=== PATIENT | female | born 1955 | race Caucasian/White ===

== ENCOUNTER 2016-09-06 16:19 | Emergency (ER) | payer OTHER ==
--- NOTE | 2016-09-06 17:05 | DIAGNOSTIC IMAGING REPORT ---
PROCEDURE: XR CHEST 1 VIEW INDICATION: CONFUSION TECHNIQUE: Portable AP view (1700 hours). COMPARISON: None. FINDINGS: Allowing for overlying wires and electrodes, lungs are clear. Heart and mediastinum are normal. Thorax is normal. IMPRESSION: 1. Negative chest.
--- NOTE | 2016-09-06 17:24 | DIAGNOSTIC IMAGING REPORT ---
PROCEDURE: CT HEAD WITHOUT CONTRAST INDICATION: MENTAL STATUS CHANGE TECHNIQUE: Noncontrast axial images with sagittal and coronal reformations. COMPARISON: None. FINDINGS: There is mild to moderate low density in the white matter of the cerebral hemispheres. Brain and ventricles are otherwise normal. No evidence of an acute process or hemorrhage. Sinuses and mastoids are normal. IMPRESSION: 1. 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 2. Otherwise negative head CT. No evidence of an acute process. 3. Findings discussed with Dr. Zana Gannon at [address] scans at this facility use dose modulation, iterative reconstruction, and/or weight-based dosing when appropriate to reduce radiation dose to as low as reasonably achievable.
--- NOTE | 2016-09-06 20:42 | ED NURSING NOTES ---
Clinical Report - Nurses [address] [place] [address] 09/06/2016 16:21 [id number] TRI[facility] Triage time 16:Sep 06 2016. Acuity: LEVEL 3. Chief Complaint: "FELT STRANGE" and DISORIENTED. Alert. No acute distress. SEPSIS SCREEN: Sepsis Screen. Negative (no infection suspected/documented). MIKO COMA SCORE: [place] Coma Scale: 15- eyes open spontaneously (4); best verbal response- oriented x 4 (5); best motor response- obeys commands (6). --16:52 Betty Roche R.N. 16:35 09/06/16. BP: 121/90. HR: 101. RR: 16. O2 saturation: 95%. Temp: 97.8 F. Pain level now: 0/10. --16:52 Betty Roche R.N. Weight: 104.3 kg stated. Height/Length: 68.5 inches Per Patient. BMI: 34.5. --16:50 Betty Roche R.N. Medications Aspirin Oral (Tablet Chewable 81 mg) 1 tablet, daily. --16:39 Betty Roche R.N. AmLODIPine Besylate Oral (Tablet 10 mg) 1 tablet, daily. --16:40 Betty Roche R.N. One Daily 50 Plus Oral. --16:40 Betty Roche R.N. Atorvastatin Calcium Oral (Tablet 40 mg) 1 tablet, daily. --16:41 Betty Roche R.N. DULoxetine HCl Oral (Capsule Delayed Release Particles 60 mg) 1 capsule, daily. --16:41 Brittany Cramer R.N. MetFORMIN HCl Oral (Tablet 500 mg) 2 tablets, 2x a day. --16:41 Brittany Cramer R.N. BusPIRone HCl Oral (Tablet 30 mg) 1 tablet, 2x a day. --17:48 Brittany Cramer R.N. Omeprazole Oral (Capsule Delayed Release 20 mg) 1 capsule, 2x a day. --17:50 Brittany Cramer R.N. Yuvafem 10 mcg, 2x a week. --17:52 Brittany Cramer R.N. Vaniqa External (Cream 13.9 %), as needed. --17:53 Brittany Cramer R.N. Clindamycin 1% gel, 2x a day. --17:54 Brittany Cramer R.N. The following entry was struck by Brittany Cramer R.N., 17:51 (09/06/16) Reason - other. <<[facility] ENTRY-- Valsartan-Hydrochlorothiazide Oral (Tablet 160-25 mg) 1 tablet, daily. --16:42 Betty Roche R.N. --END STRIKE>> The following entry was struck by Brittany Cramer R.N., 17:51 (09/06/16) Reason - other. <<[facility] ENTRY-- PriLOSEC OTC Oral (Tablet Delayed Release 20 mg) 1 tablet, BID. --16:40 Betty Roche R.N. --END STRIKE>> The following entry was struck and corrected by Brittany Cramer R.N., 17:49 (09/06/16) Reason for correction - other(correction). <<[facility] ENTRY-- DULoxetine HCl Oral (Capsule Delayed Release Particles 60 mg) 2 capsules, daily. --16:41 Betty Roche R.N. --END STRIKE>> The following entry was struck and corrected by Brittany Cramer R.N., 17:47 (09/06/16) Reason for correction - wrong value(correction). <<[facility] ENTRY-- MetFORMIN HCl Oral (Tablet 500 mg), 4x a day. --16:41 Betty Roche R.N. --END STRIKE>> The following entry was struck by Brittany Cramer R.N., 17:46 (09/06/16) Reason - other. <<[facility] ENTRY-- Metformin. --16:41 Betty Roche R.N. --END STRIKE>>. Allergies No Known Drug Allergy. --16:43 Betty Roche R.N. History Arrived by private vehicle. Historian: patient. Accompanied by family. Patient was last known well (1245 PM). ( pt states that she was at the dentist with her daughter and then after she left she got gas and went to [employer]. Pt states that she cant really remember getting gas or going to [employer]. Same thing happened after [employer] when she went to [facility].). ( recently pt has not been feeling well and states that she has had some n/v the last couple of days.). 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 PAST MEDICAL HX: Diabetes mellitus. Hypertension. Immunizations: up-to-date. SOCIAL HX: Never smoker. Occasional alcohol use. No drug use. No infectious disease exposure. SELF HARM ASSESSMENT: A self harm assessment was performed. The patient answered "no" to the question "Do you have thoughts of harming or killing yourself?" and "Have you recently had thoughts about harming or killing others?". FALL RISK ASSESSMENT: Fall risk assessment completed. No fall risk identified. NUTRITIONAL RISK ASSESSMENT: The nutritional risk assessment revealed no deficiencies. FUNCTIONAL ASSESSMENT: Functional assessment: no impairments noted. LEARNING NEEDS ASSESSMENT: The learning needs assessment revealed no barriers. ABUSE ASSESSMENT: Abuse assessment: The patient was asked "Do you feel safe in your home?". SKIN INTEGRITY ASSESSMENT: Skin integrity risk assessment completed. No skin integrity risk identified. --16:52 Betty Roche R.N. PROBLEMS: Diabetes Mellitus. Hypercholesterolemia. Anxiety Reaction. Depression. Hypertension. Tetanus Status. Immunizations. LNMP - Last Normal Menstrual Period. --16:45 Betty Roche R.N. ADDITIONAL SURGERIES: Back Surgery. BREAST REDUCTION. C SECTION. Cholecystectomy. Knee Surgery. Neck Surgery. Tubal Ligation. --16:45 Betty Roche R.N. Interventions ID band on patient. To room. --16:52 Betty Roche R.N. PHYSICAL ASSESSMENT Ambulatory to room. GENERAL / NEURO / PSYCH: Awake. Oriented X 4. Alert. Appears in no acute distress. Appears anxious. Speech normal. Mood/affect normal. Moves all extremities equally. HEENT: No facial asymmetry noted. RESPIRATORY: Respirations not labored. CVS: Capillary refill less than 2 seconds. SKIN: Skin is intact, warm and dry. --16:53 Betty Roche R.N. NURSING PROGRESS NOTES Monitoring of patient in place. Patient gowned. Head of bed elevated. Reassurance given to the patient. Patient identifiers checked. Call light placed in reach. Side rails up x 2. Bed placed in lowest position. Brakes of bed on. --16:54 Betty Roche R.N. 16:45 09/06/2016 Site #1 started via IV in the left antecubital space with an 20g angiocath, with aseptic technique and good blood return; one attempt. Saline lock flushed with 10 mL saline. --16:55 Betty Roche R.N. 17:32 09/06/16. --17:32 Jose Fletcher R.N. 17:30 09/06/16. BP: 125/83. HR: 89. RR: 20. O2 saturation: 97% on room air. --17:32 Jose Fletcher R.N. EKG time: (1633). EKG was ordered, performed by a tech and shown to the ED physician. --18:30 Santo Ramirez, DUNCAN Tech1 Overall patient status is the same- she states feels the same. GENERAL / NEURO / PSYCH: Alert. Oriented X 4. RESPIRATORY: No respiratory distress. SKIN: Skin is warm and dry. --18:52 Betty Roche R.N. 18:52 09/06/16. BP: 138/79. HR: 93. RR: 18. O2 saturation: 97%. Pain level now: 0/10. --18:52 Betty Roche R.N. ( provided pt with soup crackers and cheese.). --19:02 Betty Roche R.N. <<STRICKEN ENTRY-- ( put was provided phone and was unable to contact his mother. pt called this nurse a bitch under his breath when he was handed the phone. after pt was finished attempting to call home phone was removed from his room.). --19:12 Betty Roche R.N. --END STRIKE>> Charted On Wrong Patient --19:13 Betty Roche R.N. <<STRICKEN ENTRY-- 19:10 09/06/16. BP: 138/81. HR: 81. RR: 16. O2 saturation: 90%. Pain level now: 0/10. --19:12 Betty Roche R.N. --END STRIKE>> Charted on wrong patient. --19:13 Betty Roche R.N. DISPOSITION / DISCHARGE 20:56 09/06/16. No learning barriers present. Discharge instructions provided and reviewed with the patient. Reviewed warnings. Treatments reviewed. Reviewed referrals. Activity restrictions reviewed. Patient verbalized understanding. Written instructions provided in Nigerien. The patient was discharged home and accompanied by spouse. She left the Emergency Department ambulatory and via private vehicle. Spouse driving. --20:56 Prerna Jones R.N. 20:52 09/06/16. BP: 138/67. HR: 100. RR: 25. O2 saturation: 100% on room air. Temp: deferred. Pain level now: 0/10. --20:56 Prerna Jones R.N. Locked/Released at 09/06/2016 22:57 by Betty Roche R.N.
--- NOTE | 2016-09-06 20:42 | ED ORDER SUMMARY ---
..... Patient: MCKENNA MONAHAN OrderSheet [facility] VisitID: [id number] [place] [address] 61y, F Registration Date/Time: 09/06/2016 ORDER SHEET Weight: 104.3 kg (stated) Allergies: No Known Drug Allergy GENERAL ORDERS: Chest 1V Urgent (16:46 09/06/2016 Rosy MCDONALD) (Ack 16:52 LNations ER Tech1) (17:26 JBoardley R.N.) Fortune Cookie Maker (Continuous) (16:47 09/06/2016 Rosy MCDONALD) (Ack 16:51 LNations ER Tech1) (16:55 KKnebel R.N.) CT Head wo Cont Urgent (16:47 09/06/2016 Rosy MCDONALD) (Ack 16:52 LNations ER Tech1) (16:56 KKnebel R.N.) CBC w Diff Urgent (16:47 09/06/2016 Rosy MCDONALD) (Ack 16:51 LNations ER Tech1) (16:55 KKnebel R.N.) CMP Urgent (16:47 09/06/2016 Rosy MCDONALD) (Ack 16:51 LNations ER Tech1) (16:55 KKnebel R.N.) UA-Culture if indicated Urgent (16:47 09/06/2016 Rosy MCDONALD) (Ack 16:51 LNations ER Tech1) (17:26 Homar R.N.) Amylase Urgent (16:47 09/06/2016 Rosy MCDONALD) (Ack 16:51 LNations ER Tech1) (16:55 KKnebel R.N.) Lipase Urgent (16:47 09/06/2016 Rosy MCDONALD) (Ack 16:51 LNations ER Tech1) (16:55 KKnebel R.N.) CPK Urgent (16:47 09/06/2016 Rosy MCDONALD) (Ack 16:51 LNations ER Tech1) (16:55 KKnebel R.N.) Troponin-I Urgent (16:47 09/06/2016 Rosy MCDONALD) (Ack 16:51 LNations ER Tech1) (16:55 KKnebel R.N.) Oxygen (2 L/min) (NC) (16:47 09/06/2016 Rsoy MCDONALD) (Ack 16:51 LNations ER Tech1) (16:55 Nigel R.N.) Pulse oximeter (16:47 09/06/2016 Rosy MCDONALD) (Ack 16:51 LNations ER Tech1) (16:55 Nigel R.N.) EKG - ER Stat (16:47 09/06/2016 Rosy MCDONALD) (16:50 PWeiler ER Tech1) (Ack 16:51 LNations ER Tech1) Urine Drug Screen Urgent (17:11 09/06/2016 Rosy MCDONALD) (Ack 17:18 LNations ER Tech1) (17:26 Homar Gibson.NGaurang) MEDICATION ORDERS: IV FLUIDS: IV Saline Lock (16:47 09/06/2016 Rosy MCDONALD) (16:55 Nigel R.N.) ORDER SHEET NOTES: [Electronically signed by Betty Roche R.N. (22:57 09/06/2016)] [Electronically signed by Zana Gannon MD (21:30 09/12/2016)] [Electronically locked/signed by Betty Roche R.N. (22:57 09/06/2016)]
--- NOTE | 2016-09-06 20:42 | ED NURSING NOTES ---
Clinical Report - Nurses [address] [place] [address] 09/06/2016 16:21 Patient: [facility]CKENNA [facility]AHAN [id number] TRIAGE Triage time 16:Sep 06 2016. Acuity: LEVEL 3. Chief Complaint: "FELT STRANGE" and DISORIENTED. Alert. No acute distress. SEPSIS SCREEN: Sepsis Screen. Negative (no infection suspected/documented). MIKO COMA SCORE: [place] Coma Scale: 15- eyes open spontaneously (4); best verbal response- oriented x 4 (5); best motor response- obeys commands (6). --16:52 Betty Roche R.N. 16:35 09/06/16. BP: 121/90. HR: 101. RR: 16. O2 saturation: 95%. Temp: 97.8 F. Pain level now: 0/10. --16:52 Betty Roche R.N. Weight: 104.3 kg stated. Height/Length: 68.5 inches Per Patient. BMI: 34.5. --16:50 Betty Roche R.N. Medications Aspirin Oral (Tablet Chewable 81 mg) 1 tablet, daily. --16:39 Betty Roche R.N. AmLODIPine Besylate Oral (Tablet 10 mg) 1 tablet, daily. --16:40 Betty Roche R.N. One Daily 50 Plus Oral. --16:40 Betty Roche R.N. Atorvastatin Calcium Oral (Tablet 40 mg) 1 tablet, daily. --16:41 Betty Roche R.N. DULoxetine HCl Oral (Capsule Delayed Release Particles 60 mg) 1 capsule, daily. --16:41 Brittany Cramer R.N. MetFORMIN HCl Oral (Tablet 500 mg) 2 tablets, 2x a day. --16:41 Brittany Cramer R.N. BusPIRone HCl Oral (Tablet 30 mg) 1 tablet, 2x a day. --17:48 Brittany Cramer R.N. Omeprazole Oral (Capsule Delayed Release 20 mg) 1 capsule, 2x a day. --17:50 Brittany Cramer R.N. Yuvafem 10 mcg, 2x a week. --17:52 Brittany Cramer R.N. Vaniqa External (Cream 13.9 %), as needed. --17:53 Brittany Cramer R.N. Clindamycin 1% gel, 2x a day. --17:54 Brittany Cramer R.N. The following entry was struck by Brittany Cramer R.N., 17:51 (09/06/16) Reason - other. <<[facility] ENTRY-- Valsartan-Hydrochlorothiazide Oral (Tablet 160-25 mg) 1 tablet, daily. --16:42 Betty Roche R.N. --END STRIKE>> The following entry was struck by Brittany Cramer R.N., 17:51 (09/06/16) Reason - other. <<[facility] ENTRY-- PriLOSEC OTC Oral (Tablet Delayed Release 20 mg) 1 tablet, BID. --16:40 Betty Roche R.N. --END STRIKE>> The following entry was struck and corrected by Brittany Cramer R.N., 17:49 (09/06/16) Reason for correction - other(correction). <<[facility] ENTRY-- DULoxetine HCl Oral (Capsule Delayed Release Particles 60 mg) 2 capsules, daily. --16:41 Betty Roche R.N. --END STRIKE>> The following entry was struck and corrected by Brittany Cramer R.N., 17:47 (09/06/16) Reason for correction - wrong value(correction). <<[facility] ENTRY-- MetFORMIN HCl Oral (Tablet 500 mg), 4x a day. --16:41 Betty Roche R.N. --END STRIKE>> The following entry was struck by Brittany Cramer R.N., 17:46 (09/06/16) Reason - other. <<[facility] ENTRY-- Metformin. --16:41 Betty Roche R.N. --END STRIKE>>. Allergies No Known Drug Allergy. --16:43 Betty Roche R.N. History Arrived by private vehicle. Historian: patient. Accompanied by family. Patient was last known well (1245 PM). ( pt states that she was at the dentist with her daughter and then after she left she got gas and went to [employer]. Pt states that she cant really remember getting gas or going to [employer]. Same thing happened after [employer] when she went to [facility].). ( recently pt has not been feeling well and states that she has had some n/v the last couple of days.). 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 PAST MEDICAL HX: Diabetes mellitus. Hypertension. Immunizations: up-to-date. SOCIAL HX: Never smoker. Occasional alcohol use. No drug use. No infectious disease exposure. SELF HARM ASSESSMENT: A self harm assessment was performed. The patient answered "no" to the question "Do you have thoughts of harming or killing yourself?" and "Have you recently had thoughts about harming or killing others?". FALL RISK ASSESSMENT: Fall risk assessment completed. No fall risk identified. NUTRITIONAL RISK ASSESSMENT: The nutritional risk assessment revealed no deficiencies. FUNCTIONAL ASSESSMENT: Functional assessment: no impairments noted. LEARNING NEEDS ASSESSMENT: The learning needs assessment revealed no barriers. ABUSE ASSESSMENT: Abuse assessment: The patient was asked "Do you feel safe in your home?". SKIN INTEGRITY ASSESSMENT: Skin integrity risk assessment completed. No skin integrity risk identified. --16:52 Betty Roche R.N. PROBLEMS: Diabetes Mellitus. Hypercholesterolemia. Anxiety Reaction. Depression. Hypertension. Tetanus Status. Immunizations. LNMP - Last Normal Menstrual Period. --16:45 Betty Roche R.N. ADDITIONAL SURGERIES: Back Surgery. BREAST REDUCTION. C SECTION. Cholecystectomy. Knee Surgery. Neck Surgery. Tubal Ligation. --16:45 Betty Roche R.N. Interventions ID band on patient. To room. --16:52 Betty Roche R.N. PHYSICAL ASSESSMENT Ambulatory to room. GENERAL / NEURO / PSYCH: Awake. Oriented X 4. Alert. Appears in no acute distress. Appears anxious. Speech normal. Mood/affect normal. Moves all extremities equally. HEENT: No facial asymmetry noted. RESPIRATORY: Respirations not labored. CVS: Capillary refill less than 2 seconds. SKIN: Skin is intact, warm and dry. --16:53 Betty Roche R.N. NURSING PROGRESS NOTES Monitoring of patient in place. Patient gowned. Head of bed elevated. Reassurance given to the patient. Patient identifiers checked. Call light placed in reach. Side rails up x 2. Bed placed in lowest position. Brakes of bed on. --16:54 Betty Roche R.N. 16:45 09/06/2016 Site #1 started via IV in the left antecubital space with an 20g angiocath, with aseptic technique and good blood return; one attempt. Saline lock flushed with 10 mL saline. --16:55 Betty Roche R.N. 17:32 09/06/16. --17:32 Jose Fletcher R.N. 17:30 09/06/16. BP: 125/83. HR: 89. RR: 20. O2 saturation: 97% on room air. --17:32 Jose Fletcher R.N. EKG time: (1633). EKG was ordered, performed by a tech and shown to the ED physician. --18:30 Santo Ramirez, DUNCAN Tech1 Overall patient status is the same- she states feels the same. GENERAL / NEURO / PSYCH: Alert. Oriented X 4. RESPIRATORY: No respiratory distress. SKIN: Skin is warm and dry. --18:52 Betty Roche R.N. 18:52 09/06/16. BP: 138/79. HR: 93. RR: 18. O2 saturation: 97%. Pain level now: 0/10. --18:52 Betty Roche R.N. ( provided pt with soup crackers and cheese.). --19:02 Betty Roche R.N. <<STRICKEN ENTRY-- ( put was provided phone and was unable to contact his mother. pt called this nurse a bitch under his breath when he was handed the phone. after pt was finished attempting to call home phone was removed from his room.). --19:12 Betty Roche R.N. --END STRIKE>> Charted On Wrong Patient --19:13 Betty oRche R.N. <<STRICKEN ENTRY-- 19:10 09/06/16. BP: 138/81. HR: 81. RR: 16. O2 saturation: 90%. Pain level now: 0/10. --19:12 Betty Roche R.N. --END STRIKE>> Charted on wrong patient. --19:13 Betty Roche R.N. DISPOSITION / DISCHARGE 20:56 09/06/16. No learning barriers present. Discharge instructions provided and reviewed with the patient. Reviewed warnings. Treatments reviewed. Reviewed referrals. Activity restrictions reviewed. Patient verbalized understanding. Written instructions provided in Pakistani. The patient was discharged home and accompanied by spouse. She left the Emergency Department ambulatory and via private vehicle. Spouse driving. --20:56 Prerna Jones R.N. 20:52 09/06/16. BP: 138/67. HR: 100. RR: 25. O2 saturation: 100% on room air. Temp: deferred. Pain level now: 0/10. --20:56 Prerna Jones R.N. Locked/Released at 09/06/2016 22:57 by Betty Roche R.N.
--- NOTE | 2016-09-06 20:42 | ED ORDER SUMMARY ---
..... Patient: MCKENNA MONAHAN OrderSheet [facility] VisitID: [id number] [place] [address] 61y, F Registration Date/Time: 09/06/2016 ORDER SHEET Weight: 104.3 kg (stated) Allergies: No Known Drug Allergy GENERAL ORDERS: Chest 1V Urgent (16:46 09/06/2016 Rosy MCDONALD) (Ack 16:52 LNations ER Tech1) (17:26 JBoardley R.N.) Quilt Stuffer (Continuous) (16:47 09/06/2016 Rosy MCDONALD) (Ack 16:51 LNations ER Tech1) (16:55 KKnebel R.N.) CT Head wo Cont Urgent (16:47 09/06/2016 Rosy MCDONALD) (Ack 16:52 LNations ER Tech1) (16:56 KKnebel R.N.) CBC w Diff Urgent (16:47 09/06/2016 Rosy MCDONALD) (Ack 16:51 LNations ER Tech1) (16:55 KKnebel R.N.) CMP Urgent (16:47 09/06/2016 Rosy MCDONALD) (Ack 16:51 LNations ER Tech1) (16:55 KKnebel R.N.) UA-Culture if indicated Urgent (16:47 09/06/2016 Rosy MCDONALD) (Ack 16:51 LNations ER Tech1) (17:26 Homar R.N.) Amylase Urgent (16:47 09/06/2016 Rosy MCDONALD) (Ack 16:51 LNations ER Tech1) (16:55 KKnebel R.N.) Lipase Urgent (16:47 09/06/2016 Rosy MCDONALD) (Ack 16:51 LNations ER Tech1) (16:55 KKnebel R.N.) CPK Urgent (16:47 09/06/2016 Rosy MCDONALD) (Ack 16:51 LNations ER Tech1) (16:55 KKnebel R.N.) Troponin-I Urgent (16:47 09/06/2016 Rosy MCDONALD) (Ack 16:51 LNations ER Tech1) (16:55 KKnebel R.N.) Oxygen (2 L/min) (NC) (16:47 09/06/2016 Rosy MCDONALD) (Ack 16:51 LNations ER Tech1) (16:55 Nigel R.N.) Pulse oximeter (16:47 09/06/2016 Rosy MCDONALD) (Ack 16:51 LNations ER Tech1) (16:55 Nigel R.N.) EKG - ER Stat (16:47 09/06/2016 Rosy MCDONALD) (16:50 PWeiler ER Tech1) (Ack 16:51 LNations ER Tech1) Urine Drug Screen Urgent (17:11 09/06/2016 Rosy MCDONALD) (Ack 17:18 LNations ER Tech1) (17:26 Homar Gibson.NGaurang) MEDICATION ORDERS: IV FLUIDS: IV Saline Lock (16:47 09/06/2016 Rosy MCDONALD) (16:55 Nigel R.N.) ORDER SHEET NOTES: [Electronically signed by Betty Roche R.N. (22:57 09/06/2016)] [Electronically signed by Zana Gannon MD (21:30 09/12/2016)] [Electronically locked/signed by Betty Roche R.N. (22:57 09/06/2016)]
--- NOTE | 2016-09-06 20:42 | ED CLINICAL REPORT ---
Clinical Report - Physicians/Mid Levels [facility] [address] [place] [address] 09/06/2016 16:21 Patient: MCKENNA MONAHAN Time Seen: 16:46. Arrived- By private vehicle. Historian- patient. HISTORY OF PRESENT ILLNESS Chief Complaint: CHANGED MENTAL STATUS. This started today and is now gone. It was abrupt in onset. Patient was witnessed to be last known well (at noon). The patient has been confused and "felt strange". No weakness or numbness. Usually is alert and oriented X3 and usually has normal mobility. Similar symptoms previously: REVIEW OF SYSTEMS No chills, fever, calf pain, chest pain or cough. No difficulty breathing, pedal edema, palpitations, black stools or bloody stools. No constipation. She has experienced sweats and had nausea. She has had loose stools. No bloody diarrhea. She has had vomiting (today). The vomiting has occurred only once. All systems otherwise negative, except as recorded above. PAST HISTORY Problems: Diabetes Mellitus. Hypercholesterolemia. Anxiety Reaction. Depression. Hypertension. Additional Surgeries: Back Surgery. BREAST REDUCTION. C SECTION. Cholecystectomy. Knee Surgery. Neck Surgery. Tubal Ligation. Medications: Clindamycin 1% gel, 2x a day. Vaniqa External (Cream 13.9 %), as needed. Yuvafem 10 mcg, 2x a week. Omeprazole Oral (Capsule Delayed Release 20 mg) 1 capsule, 2x a day. BusPIRone HCl Oral (Tablet 30 mg) 1 tablet, 2x a day. MetFORMIN HCl Oral (Tablet 500 mg) 2 tablets, 2x a day. DULoxetine HCl Oral (Capsule Delayed Release Particles 60 mg) 1 capsule, daily. Atorvastatin Calcium Oral (Tablet 40 mg) 1 tablet, daily. One Daily 50 Plus Oral. AmLODIPine Besylate Oral (Tablet 10 mg) 1 tablet, daily. Aspirin Oral (Tablet Chewable 81 mg) 1 tablet, daily. Allergies: No Known Drug Allergy. SOCIAL HISTORY Never smoker. No alcohol use or drug use. She lives with spouse. FAMILY HISTORY Heart disease in first-degree relative (sibling). sister with hydrocephalus and dementia. ADDITIONAL NOTES The nursing notes have been reviewed. PHYSICAL EXAM Vital Signs: 09/06/2016 16:35 BP: 121/90. HR: 101. RR: 16. O2 saturation: 95%. Temp: 97.8 F. Pain level now: 0/10. Have been reviewed. Appearance: Alert. Head: Head atraumatic. Eyes: Pupils equal, round and reactive to light. ENT: Normal ENT inspection. Airway intact. Moist mucous membranes. Pharynx normal. Neck: Normal inspection. Neck supple. No meningeal signs or carotid bruit. CVS: Normal heart rate and rhythm. Heart sounds normal. Respiratory: No respiratory distress. Breath sounds normal. Abdomen: Soft and nontender. No organomegaly. Back: Normal inspection. Skin: Skin warm and dry. Normal skin color. No rash. Normal skin turgor. Extremities: Extremities exhibit normal ROM. No lower extremity edema. Neuro: Alert. Oriented X 3. Cranial nerves normal (as tested). No cerebellar findings. No motor deficit. No sensory deficit. LABS, X-RAYS, AND EKG EKG: Rate: 83. Non-specific ST segment / T wave abnormalities. Prior EKG unavailable. The study has been independently viewed by me. Chest X-ray: No acute disease. The X-rays were independently viewed by me. CT Head: (IMPRESSION: 1. 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 2. Otherwise negative head CT. No evidence of an acute process.). Laboratory Tests: UA-Culture if indicated: (MARIO: 09/06/2016 17:05) ( MsgRcvd 09/06/2016 17:38) Final results Test Result Flag Units (Reference) URINE COLOR YELLOW URINE APPEARANCE CLEAR URINE GLUCOSE NEGATIVE (NEGATIVE) URINE BILIRUBIN NEGATIVE (NEGATIVE) URINE KETONE NEGATIVE (NEGATIVE) URINE SPECIFIC GRAVITY 1.015 (1.010-1.030) URINE PH 6.5 (5.0-8.0) URINE PROTEIN NEGATIVE (NEGATIVE) URINE UROBILINOGEN 0.2 EU/dL (0.2-1.0) URINE NITRITE NEGATIVE (NEGATIVE) URINE BLOOD TRACE-INTACT (NEGATIVE) URINE LEUK ESTERASE NEGATIVE (NEGATIVE) URINE RBC RARE rbc/hpf (0-1) URINE WBC 1-3 wbc/hpf (0-1) URINE EPITHELIAL CELLS 0-1 EPI/hpf (0-5) URINE BACTERIA FEW (1+) (NONE SEEN) URINE COMMENT CULT NOT INDICATED URINE CULTURES ARE SET-UP BASED ON THE FOLLOWING CRITERIA:POSITIVE NITRITEPOSITIVE LEUKOCYTE ESTERASEGREATER THAN 10 WHITE BLOOD CELLSMODERATE (2+) OR GREATER BACTERIA Urine Drug Screen: (MARIO: 09/06/2016 17:05) ( MsgRcvd 09/06/2016 17:35) Final results Test Result Flag Units (Reference) AMPHETAMINE/METHAMPHETAMINE NEGATIVE (NEGATIVE) BARBITURATE NEGATIVE (NEGATIVE) BENZODIAZEPINE NEGATIVE (NEGATIVE) CANNABINOID NEGATIVE (NEGATIVE) COCAINE NEGATIVE (NEGATIVE) ECSTASY NEGATIVE (NEGATIVE) METHADONE NEGATIVE (NEGATIVE) OPIATE NEGATIVE (NEGATIVE) The urine drug screen is a qualitative screening test fordrug overdose and abuse. All screen results should beconsidered as presumptive.Drugs screened for are as follows:BenzodiazepinesCocaineAmphetamines/MetamphetaminesTHC (Tetrahydrocannabinol)OpiatesBarbituratesEcstasyMethadonePositive results are unconfirmed. For confirmation, notifythe lab for the specimen to be sent to the reference lab.All confirmations must be performed by a differentmethodology.The ingestion of natural herbal and plant productscontaining Ephedra/Ephedra metabolites can produce in urineone or more substances capable of cross reacting withamphetamine/methamphetamine immunoassays. These testsprovide a preliminary result only. A more specificalternative chemical method must be used to obtain aconfirmed analytical result. . PROGRESS AND PROCEDURES Patient/family counseled. Old medical records ordered. Disposition: Discharged. Condition: stable. CLINICAL IMPRESSION Changed mental status with confusion. INSTRUCTIONS No driving or operating machinery until released. (Talk with your doctor about whether you would benefit from MRI imaging as discussed). Warnings: Further evaluation is necessary. GENERAL WARNINGS: Return or contact your physician immediately if your condition worsens or changes unexpectedly, if not improving as expected, or if other problems arise. Your Current Medications: CONTINUE TAKING THE FOLLOWING MEDICATIONS: AmLODIPine Besylate Oral : Tablet 10 mg, 1 tablet daily. Aspirin Oral : Tablet Chewable 81 mg, 1 tablet daily. Atorvastatin Calcium Oral : Tablet 40 mg, 1 tablet daily. BusPIRone HCl Oral : Tablet 30 mg, 1 tablet 2x a day. Clindamycin 1% gel* : 2x a day. DULoxetine HCl Oral : Capsule Delayed Release Particles 60 mg, 1 capsule daily. MetFORMIN HCl Oral : Tablet 500 mg, 2 tablets 2x a day. Omeprazole Oral : Capsule Delayed Release 20 mg, 1 capsule 2x a day. One Daily 50 Plus Oral. Vaniqa External : Cream 13.9 %, prn. Yuvafem* : 10 mcg 2x a week. Follow-up: Follow up with your doctor in seven days. Call for the next available appointment. Understanding of the discharge instructions verbalized by patient and family. (Electronically signed by Zana Gannon MD 09/12/2016 21:30)
--- NOTE | 2016-09-12 21:30 | ED MED RECONCILIATION SUMMARY ---
Patient: MCKENNA MONAHAN Medication Reconciliation Report [facility] VisitID: [id number] [place] [address] 61y, F Registration Date/Time: 09/06/2016 Weight: 104.3 kg Height/Length: 60 in. BMI: 34.5 ALLERGIES: No Known Drug Allergy The patient's Home Medications are listed below: CONTINUE TAKING THE FOLLOWING MEDICATIONS: AmLODIPine Besylate Oral (10 mg) 1 tablet, daily Aspirin Oral (81 mg) 1 tablet, daily Atorvastatin Calcium Oral (40 mg) 1 tablet, daily BusPIRone HCl Oral (30 mg) 1 tablet, 2x a day Clindamycin 1% gel, 2x a day DULoxetine HCl Oral (60 mg) 1 capsule, daily MetFORMIN HCl Oral (500 mg) 2 tablets, 2x a day Omeprazole Oral (20 mg) 1 capsule, 2x a day One Daily 50 Plus Oral Vaniqa External (13.9 %) Yuvafem 10 mcg, 2x a week The source(s) of the original Home Medication information: Not obtained. The following Medications were given to the patient in the Emergency Department: None. The following Medications were prescribed to the patient: None.
--- NOTE | 2016-09-12 21:30 | ED MAR SUMMARY ---
..... Medication Administration Record [facility] [address] [place] [place], [place] [id number] Patient: MCKENNA MONAHAN Visit ID: [id number] 61y, F Weight: 104.3 kg Height/Length: 68.5 in BMI: 34.5 ALLERGIES: No Known Drug Allergy
--- NOTE | 2016-09-12 21:30 | ED DISCHARGE INSTRUCTIONS ---
Patient: MCKENNA MONAHAN General Instructions [facility] VisitID: [id number] [place] [address] 61y, F Registration Date/Time: 09/06/2016 Changed mental status with confusion. INSTRUCTIONS No driving or operating machinery until released. (Talk with your doctor about whether you would benefit from MRI imaging as discussed). Warnings: Further evaluation is necessary. GENERAL WARNINGS: Return or contact your physician immediately if your condition worsens or changes unexpectedly, if not improving as expected, or if other problems arise. Your Current Medications: CONTINUE TAKING THE FOLLOWING MEDICATIONS: AmLODIPine Besylate Oral : Tablet 10 mg, 1 tablet daily. Aspirin Oral : Tablet Chewable 81 mg, 1 tablet daily. Atorvastatin Calcium Oral : Tablet 40 mg, 1 tablet daily. BusPIRone HCl Oral : Tablet 30 mg, 1 tablet 2x a day. Clindamycin 1% gel* : 2x a day. DULoxetine HCl Oral : Capsule Delayed Release Particles 60 mg, 1 capsule daily. MetFORMIN HCl Oral : Tablet 500 mg, 2 tablets 2x a day. Omeprazole Oral : Capsule Delayed Release 20 mg, 1 capsule 2x a day. One Daily 50 Plus Oral. Vaniqa External : Cream 13.9 %, prn. Yuvafem* : 10 mcg 2x a week. Follow-up: Follow up with your doctor in seven days. Call for the next available appointment. Understanding of the discharge instructions verbalized by patient and family. ADDITIONAL INFORMATION Confusion Confusion is a change in a persons ability to think clearly. There may be trouble recognizing familiar people and places, or knowing what day it is. Memory, judgement and decision-making may also be affected. In severe cases there may be limited or no response to verbal commands. Confusion may occur suddenly or develop gradually over time. There are many injuries and medical conditions that can cause this problem. These include brain injury, side effect of medication, intoxication, withdrawal from drugs, infection, stroke, dementia,mental illness and other causes. The exam and testing today did not show the cause of this problem. Further testing will be needed. Specific treatment and hope for recovery depend on the cause of this symptom. Home Care: Be sure someone is with the confused person at all times. He/she should not be left alone or unsupervised. Keep medicines (prescription and [id number]) in a secure place, under the caregivers control. A person with confusion should not be allowed to take their own medicines.This needs to be supervised by the caregiver. Ways to help a person with confusion: Activities:Establish a daily routine. Change can be a source of stress for someone with confusion. Make a time schedule for common tasks such as: bathing, dressing, taking medicines, meals, going for walks, shopping, naps and bed time. Communication:Speak slowly and clearly with a gentle tone of voice. Use short simple words and sentences. Ask one question at a time. Do not interrupt, criticize or argue. Be calm and supportive. Use friendly facial expressions. Use pointing and touching to help communicate. If there has been loss of long-term memory, do not ask questions about past events. This would only cause frustration for the person. Behavioral tips:Use lists, signs, family photos, clocks and calendars as memory aids. Label cabinets and drawers. Try to distract, not confront, the patient. When he/she becomes frustrated or upset, redirect his/her attention to eating or some other activity of interest. Medical-Legal tips: If this proves to be a permanent condition, talk to your doctor and/or white sugar pan tank operator about getting a Power of Coffee Grinder for health care and for financial decisions. It is best to do this while the person can still sign legal documents and make his/izzy own legal decisions. Otherwise, a court order will be required. Follow-Up with the patients doctor or as advised by our staff for further testing. Get Prompt Medical Attention if any of the following occur: Frequent falling Refusal to eat or drink Violent behavior or behavior becomes too difficult to manage at home Increased drowsiness, or failure to respond normally Increasing headache, nausea or repeated vomiting Numbness or weakness of the face, one arm or one leg Slurred speech, trouble speaking, walking or seeing Fainting spell, dizziness or seizure Unexplained fever over 100.4 F (38.0 C) oral You have been given the following additional information: Confusion No driving or operating machinery until released. (Electronically signed by Zana Gannon MD 09/12/2016 21:30)
--- NOTE | 2016-09-12 21:30 | ED MAR SUMMARY ---
..... Medication Administration Record [facility] [address] [place] [place], [place] [id number] Patient: MCKENNA MONAHAN Visit ID: [id number] 61y, F Weight: 104.3 kg Height/Length: 68.5 in BMI: 34.5 ALLERGIES: No Known Drug Allergy
--- NOTE | 2016-09-12 21:30 | ED MED RECONCILIATION SUMMARY ---
Patient: MCKENNA MONAHAN Medication Reconciliation Report [facility] VisitID: [id number] [place] [address] 61y, F Registration Date/Time: 09/06/2016 Weight: 104.3 kg Height/Length: 60 in. BMI: 34.5 ALLERGIES: No Known Drug Allergy The patient's Home Medications are listed below: CONTINUE TAKING THE FOLLOWING MEDICATIONS: AmLODIPine Besylate Oral (10 mg) 1 tablet, daily Aspirin Oral (81 mg) 1 tablet, daily Atorvastatin Calcium Oral (40 mg) 1 tablet, daily BusPIRone HCl Oral (30 mg) 1 tablet, 2x a day Clindamycin 1% gel, 2x a day DULoxetine HCl Oral (60 mg) 1 capsule, daily MetFORMIN HCl Oral (500 mg) 2 tablets, 2x a day Omeprazole Oral (20 mg) 1 capsule, 2x a day One Daily 50 Plus Oral Vaniqa External (13.9 %) Yuvafem 10 mcg, 2x a week The source(s) of the original Home Medication information: Not obtained. The following Medications were given to the patient in the Emergency Department: None. The following Medications were prescribed to the patient: None.
--- NOTE | 2016-09-12 21:30 | ED DISCHARGE INSTRUCTIONS ---
Patient: MCKENNA MONAHAN General Instructions [facility] VisitID: [id number] [place] [address] 61y, F Registration Date/Time: 09/06/2016 Changed mental status with confusion. INSTRUCTIONS No driving or operating machinery until released. (Talk with your doctor about whether you would benefit from MRI imaging as discussed). Warnings: Further evaluation is necessary. GENERAL WARNINGS: Return or contact your physician immediately if your condition worsens or changes unexpectedly, if not improving as expected, or if other problems arise. Your Current Medications: CONTINUE TAKING THE FOLLOWING MEDICATIONS: AmLODIPine Besylate Oral : Tablet 10 mg, 1 tablet daily. Aspirin Oral : Tablet Chewable 81 mg, 1 tablet daily. Atorvastatin Calcium Oral : Tablet 40 mg, 1 tablet daily. BusPIRone HCl Oral : Tablet 30 mg, 1 tablet 2x a day. Clindamycin 1% gel* : 2x a day. DULoxetine HCl Oral : Capsule Delayed Release Particles 60 mg, 1 capsule daily. MetFORMIN HCl Oral : Tablet 500 mg, 2 tablets 2x a day. Omeprazole Oral : Capsule Delayed Release 20 mg, 1 capsule 2x a day. One Daily 50 Plus Oral. Vaniqa External : Cream 13.9 %, prn. Yuvafem* : 10 mcg 2x a week. Follow-up: Follow up with your doctor in seven days. Call for the next available appointment. Understanding of the discharge instructions verbalized by patient and family. ADDITIONAL INFORMATION Confusion Confusion is a change in a persons ability to think clearly. There may be trouble recognizing familiar people and places, or knowing what day it is. Memory, judgement and decision-making may also be affected. In severe cases there may be limited or no response to verbal commands. Confusion may occur suddenly or develop gradually over time. There are many injuries and medical conditions that can cause this problem. These include brain injury, side effect of medication, intoxication, withdrawal from drugs, infection, stroke, dementia,mental illness and other causes. The exam and testing today did not show the cause of this problem. Further testing will be needed. Specific treatment and hope for recovery depend on the cause of this symptom. Home Care: Be sure someone is with the confused person at all times. He/she should not be left alone or unsupervised. Keep medicines (prescription and cffn-lgo-cwrrrie) in a secure place, under the caregivers control. A person with confusion should not be allowed to take their own medicines.This needs to be supervised by the caregiver. Ways to help a person with confusion: Activities:Establish a daily routine. Change can be a source of stress for someone with confusion. Make a time schedule for common tasks such as: bathing, dressing, taking medicines, meals, going for walks, shopping, naps and bed time. Communication:Speak slowly and clearly with a gentle tone of voice. Use short simple words and sentences. Ask one question at a time. Do not interrupt, criticize or argue. Be calm and supportive. Use friendly facial expressions. Use pointing and touching to help communicate. If there has been loss of long-term memory, do not ask questions about past events. This would only cause frustration for the person. Behavioral tips:Use lists, signs, family photos, clocks and calendars as memory aids. Label cabinets and drawers. Try to distract, not confront, the patient. When he/she becomes frustrated or upset, redirect his/her attention to eating or some other activity of interest. Medical-Legal tips: If this proves to be a permanent condition, talk to your doctor and/or lens coating technician about getting a Power of Pharmacy Delivery Driver for health care and for financial decisions. It is best to do this while the person can still sign legal documents and make his/izzy own legal decisions. Otherwise, a court order will be required. Follow-Up with the patients doctor or as advised by our staff for further testing. Get Prompt Medical Attention if any of the following occur: Frequent falling Refusal to eat or drink Violent behavior or behavior becomes too difficult to manage at home Increased drowsiness, or failure to respond normally Increasing headache, nausea or repeated vomiting Numbness or weakness of the face, one arm or one leg Slurred speech, trouble speaking, walking or seeing Fainting spell, dizziness or seizure Unexplained fever over 100.4 F (38.0 C) oral You have been given the following additional information: Confusion No driving or operating machinery until released. (Electronically signed by Zana Gannon MD 09/12/2016 21:30)
== END 2016-09-06 20:56 | disposition home or self-care (01) ==
LOC: ED SRH 16:19
DX: R41.82 Altered mental status, unspecified (principal); R41.0 Disorientation, unspecified; I10 Essential (primary) hypertension; E11.9 Type 2 diabetes mellitus without complications; E78.00 Pure hypercholesterolemia, unspecified; Z79.82 Long term (current) use of aspirin; Z79.84 Long term (current) use of oral hypoglycemic drugs; Z79.899 Other long term (current) drug therapy
CPT/HCPCS: 90004; 90100; 90616; 92235; 92530; 92610; 92760; 92761; 92762; 92763; 92764; 92765; 92766; 92767; 95059